=== PATIENT | female | born 1965 | race Caucasian/White ===

== ENCOUNTER 2016-12-14 12:41 | Emergency (ER) | payer SELFPAY ==
[~2016-12-14] VITALS: Ht 154.9 cm; Wt 63.5 kg
[2016-12-14 12:51] VITALS: BP_SYST 138
[2016-12-14] MEDS ORDERED: MORPHINE 4 MG/ML INJ. SYRINGE IM ONE (14:45)
[2016-12-14 15:20] VITALS: BP_SYST 120
== END 2016-12-14 15:20 | disposition home or self-care (01) ==
LOC: SED 12:41
DX: S82.832A Other fracture of upper and lower end of left fibula, initial encounter for closed fracture (principal); Z88.1 Allergy status to other antibiotic agents; W01.0XXA Fall on same level from slipping, tripping and stumbling without subsequent striking against object, initial encounter; Y93.89 Activity, other specified; Y92.89 Other specified places as the place of occurrence of the external cause; Y99.8 Other external cause status
CPT/HCPCS: 29515; 73610; 96372; 99284; J2270